=== PATIENT | male | born 1995 | race Caucasian/White ===

== ENCOUNTER 2017-02-14 00:18 | Emergency (ER) | payer OTHER ==
[~2017-02-14] VITALS: Ht 193 cm; Wt 97.0 kg
[2017-02-14 00:23] VITALS: BP 148/72
== END 2017-02-14 01:54 | disposition home or self-care (01) ==
LOC: ED 00:46
DX: S83.411A Sprain of medial collateral ligament of right knee, initial encounter (principal); W01.0XXA Fall on same level from slipping, tripping and stumbling without subsequent striking against object, initial encounter; Y93.89 Activity, other specified; Y99.8 Other external cause status; Y92.89 Other specified places as the place of occurrence of the external cause
CPT/HCPCS: 99284